=== PATIENT | female | born 1985 | race Caucasian/White ===

== ENCOUNTER 2016-12-07 16:35 | Emergency (ER) | payer OTHER ==
[~2016-12-07] VITALS: Ht 175.3 cm; Wt 116.0 kg
[2016-12-07] MEDS ORDERED: LIDOCAINE 2% (XYLOCAINE) 20 ML VIAL INJ ONE (18:50)
[2016-12-07] MEDS ORDERED: ACYCLOVIR 800 MG PO ONE (19:20)
[2016-12-07] MEDS ORDERED: SULFAMETHOXAZOLE/TRIMETHOPRIM 800-160 MG (SEPTRA DS) TAB PO ONE (19:20)
[2016-12-07] MEDS ORDERED: ED- HYDROcodone/ACETAMINOPHEN 5MG/325MG (NORCO) 6 TABLETS/BTL PO ONE (19:20)
[2016-12-07 20:03] VITALS: BP 113/70
== END 2016-12-07 20:04 | disposition home or self-care (01) ==
LOC: ED 16:37
DX: N76.4 Abscess of vulva (principal); N76.6 Ulceration of vulva
CPT/HCPCS: 87070; 87075; 99283; J2001; 10060; 87252